=== PATIENT | female | born 1940 | race American Indian/Alaskan Native ===

== ENCOUNTER 2018-09-14 09:09 | Emergency (ER) | payer MEDICARE, MEDICAID ==
[~2018-09-14] VITALS: Ht 157.5 cm; Wt 78.4 kg
[~2018-09-14 09:09] MED LIST: AMLO10TA13 PO; CLON0.3T PO; FURO40TA4 PO; GABA-530 PO; HYDR-3972 PO; LANTUS SQ; MONT10TA24 PO; SERT50TA10 PO; VALS80TA32 PO
[2018-09-14 10:15] LABS: BASOPHILS % (AUTO) 0.5 % (0-1); EOSINOPHILS # (AUTO) 0.2 X10'3 (0-0.9); HEMATOCRIT 22.7 % (35.0-45.0); HEMOGLOBIN 7.6 g/dl (12.0-16.0); LYMPHOCYTES # (AUTO) 0.7 X10'3 (1.1-4.8); LYMPHOCYTES % (AUTO) 10.5 % (21-51); MEAN CORPUSCULAR HGB CONC 33.4 % (33.0-36.5); MEAN CORPUSCULAR VOLUME 98.6 FL (78-98); MEAN PLATELET VOLUME 7.9 FL (7.4-10.4); MONOCYTES # (AUTO) 0.4 X10'3 (0-0.9); MONOCYTES % (AUTO) 5.1 % (2-12); NEUTROPHILS # (AUTO) 5.7 X10'3 (1.8-7.7); NEUTROPHILS % (AUTO) 80.9 % (42-75); PLATELET COUNT 274 X10'3 (140-440); RED CELL DISTRIBUTION WIDTH 17.9 % (11.5-14.5)
[2018-09-14 10:51] LABS: ALANINE AMINOTRANSFERASE 24 U/L (12-78); ALBUMIN 3.2 G/DL (3.4-5.0); ALBUMIN/GLOBULIN RATIO 0.8 (1.1-1.5); ALKALINE PHOSPHATASE 173 IU/L (46-116); ANION GAP 5 (8-16); ASPARTATE AMINO TRANSFERASE 19 U/L (10-37); BILIRUBIN,TOTAL 0.4 MG/DL (0.1-1.0); BLOOD UREA NITROGEN 9 MG/DL (7-18); BUN/CREATININE RATIO 5.7 (6.6-38.0); CALCIUM 8.3 MG/DL (8.5-10.1); CHLORIDE 99 MMOL/L (99-107); CREATININE 1.57 MG/DL (0.40-0.90); GLUCOSE 76 MG/DL (70-104); POTASSIUM 3.2 MMOL/L (3.5-5.1); PROTHROMBIN TIME 9.9 SECONDS (9.0-12.0); SODIUM 139 MMOL/L (135-145); TOTAL CARBON DIOXIDE 35.2 MMOL/L (24-32); TOTAL PROTEIN 7.2 G/DL (6.4-8.2); eGFR 32 ML/MIN
--- NOTE | 2018-09-14 11:28 | NUR ---
[employer] contacted for PT ride.
[2018-09-14 11:58] VITALS: BP 127/60
--- NOTE | 2018-09-14 12:14 | NUR ---
PT BIB EMS FROM DIALYSIS FOR C/O LOW H/H. PT IS ASYMPTOMATIC
--- NOTE | 2018-09-14 12:22 | NUR ---
ERIKA [phone]
== END 2018-09-14 13:47 | disposition home or self-care (01) ==
LOC: ER 09:10
DX: D64.9 Anemia, unspecified (principal); E87.6 Hypokalemia; I12.0 Hypertensive chronic kidney disease with stage 5 chronic kidney disease or end stage renal disease; E11.22 Type 2 diabetes mellitus with diabetic chronic kidney disease; N18.6 End stage renal disease; J44.9 Chronic obstructive pulmonary disease, unspecified; K21.9 Gastro-esophageal reflux disease without esophagitis; M19.90 Unspecified osteoarthritis, unspecified site; Z90.49 Acquired absence of other specified parts of digestive tract; Z98.890 Other specified postprocedural states; Z79.4 Long term (current) use of insulin; Z79.899 Other long term (current) drug therapy; Z99.2 Dependence on renal dialysis
CPT/HCPCS: 36415; 71045; 80053; 85025; 85610; 86885; 86900; 86901; 93005; 99284

== ENCOUNTER 2018-09-26 06:59 | Day surgery (SDC) | payer MEDICARE, MEDICAID ==
[~2018-09-26] VITALS: Ht 152.4 cm; Wt 76.7 kg
[2018-09-26] VITALS (9 sets, daily range): BP systolic 134–146; BP diastolic 56–76
[2018-09-26] MEDS ORDERED: normal saline 1000ml 1,000 ML IV SCH (07:20)
[2018-09-26] MEDS ORDERED: ASPI-1053 PO (07:57)
[2018-09-26 08:24] LABS: BASOPHILS % (AUTO) 0.5 % (0-1); EOSINOPHILS # (AUTO) 0.3 X10'3 (0-0.9); EOSINOPHILS % (AUTO) 4.7 % (0-6); HEMATOCRIT 28.5 % (35.0-45.0); HEMOGLOBIN 9.3 g/dl (12.0-16.0); LYMPHOCYTES # (AUTO) 1.2 X10'3 (1.1-4.8); LYMPHOCYTES % (AUTO) 16.8 % (21-51); MEAN CORPUSCULAR HEMOGLOBIN 31.7 PG (27.0-31.0); MEAN CORPUSCULAR HGB CONC 32.7 g/dL (33.0-36.5); MEAN PLATELET VOLUME 7.8 FL (7.4-10.4); MONOCYTES # (AUTO) 0.6 X10'3 (0-0.9); MONOCYTES % (AUTO) 8.3 % (2-12); NEUTROPHILS # (AUTO) 4.8 X10'3 (1.8-7.7); NEUTROPHILS % (AUTO) 69.7 % (42-75); PLATELET COUNT 170 X10'3 (140-440); RED BLOOD COUNT 2.94 X10'6 (4.20-5.60); RED CELL DISTRIBUTION WIDTH 17.1 % (11.5-14.5); WHITE BLOOD COUNT 6.9 X10'3 (4.5-11.0)
[2018-09-26 08:26] LABS: ALBUMIN 3.1 G/DL (3.4-5.0); ANION GAP 14 (8-16); BLOOD UREA NITROGEN 33 MG/DL (7-18); BUN/CREATININE RATIO 6.7 (6.6-38.0); CALCIUM 7.9 MG/DL (8.5-10.1); CHLORIDE 99 MMOL/L (99-107); CREATININE 4.92 MG/DL (0.40-0.90); GLUCOSE 76 MG/DL (70-104); POTASSIUM 4.1 MMOL/L (3.5-5.1); SODIUM 141 MMOL/L (135-145); TOTAL CARBON DIOXIDE 28.5 MMOL/L (24-32); eGFR 9 ML/MIN
[2018-09-26 08:27] LABS: PROTHROMBIN TIME 10.5 SECONDS (9.0-12.0)
[2018-09-26] MEDS ORDERED: LIDOcaine 1%/PF 5ML 10 MG/ML VIAL ONE ×2 (08:29→08:36)
[2018-09-26] MEDS ORDERED: iohexol 300mg/ml 100ml inj. ONE (08:29)
[2018-09-26] MEDS ORDERED: midazolam 2 mg/2 ml injection ONE (08:40)
[2018-09-26] MEDS ORDERED: heparin 1,000 UNITS/NS 500ml 500 ML ONE (08:41)
[2018-09-26] MEDS ORDERED: fentaNYL/PF 50MCG/1 ML 2ML syringe ONE ×2 (08:41→09:53)
--- NOTE | 2018-09-26 10:30 | NUR ---
called pt telephone directory distributor driver, waiting for response.
[2018-09-26] MEDS ORDERED: HYDROcodone/acetaminophen 10/325mg tab PO ONE (10:50)
--- NOTE | 2018-09-26 11:30 | NUR ---
2nd call to pt jinrikisha driver, waiting for response.
--- NOTE | 2018-09-26 12:45 | NUR ---
Rubber Gasket Inspector Trimmer called and said he would be here in 30 min.
== END 2018-09-26 13:45 | disposition home or self-care (01) ==
LOC: SSTAY O 06:59
PROVIDERS: ATTEND Radiology Diagnostic Radiology
DX: T82.858A Stenosis of other vascular prosthetic devices, implants and grafts, initial encounter (principal); Y83.8 Other surgical procedures as the cause of abnormal reaction of the patient, or of later complication, without mention of misadventure at the time of the procedure; Y92.89 Other specified places as the place of occurrence of the external cause; I87.1 Compression of vein; E11.22 Type 2 diabetes mellitus with diabetic chronic kidney disease; I12.0 Hypertensive chronic kidney disease with stage 5 chronic kidney disease or end stage renal disease; N18.6 End stage renal disease; J44.9 Chronic obstructive pulmonary disease, unspecified; K21.9 Gastro-esophageal reflux disease without esophagitis; M19.90 Unspecified osteoarthritis, unspecified site; F41.8 Other specified anxiety disorders; F32.9 Major depressive disorder, single episode, unspecified; E55.9 Vitamin D deficiency, unspecified; Z95.1 Presence of aortocoronary bypass graft; Z87.891 Personal history of nicotine dependence; Z99.2 Dependence on renal dialysis; Z86.2 Personal history of diseases of the blood and blood-forming organs and certain disorders involving the immune mechanism; Z87.19 Personal history of other diseases of the digestive system; Z90.49 Acquired absence of other specified parts of digestive tract; Z79.891 Long term (current) use of opiate analgesic; Z79.4 Long term (current) use of insulin; Z79.82 Long term (current) use of aspirin; Z79.899 Other long term (current) drug therapy; Z98.890 Other specified postprocedural states
CPT/HCPCS: 36415; 36902; 36907; 80048; 82948; 85025; 85610; 99152; 99153; J1644; J2001; J2250; J3010; Q9967; C1725; C1769; C1894

== ENCOUNTER 2019-06-15 15:28 | Inpatient (IN) | payer MEDICARE, MEDICAID ==
[~2019-06-15] VITALS: Ht 152.4 cm; Wt 77.1 kg
[~2019-06-15 15:28] MED LIST changes: +ASPI-1053 PO
[2019-06-15] MEDS ORDERED: acetaminophen 325mg tablet PO PRN (16:30)
[2019-06-15] MEDS ORDERED: ondansetron/PF 4mg/2ml inj IV PRN (16:30)
[2019-06-15 16:45] LABS: BASOPHILS # (AUTO) 0.1 X10'3 (0-0.2); BASOPHILS % (AUTO) 0.5 % (0-1); EOSINOPHILS # (AUTO) 0.1 X10'3 (0-0.9); EOSINOPHILS % (AUTO) 0.6 % (0-6); HEMATOCRIT 31.7 % (35.0-45.0); HEMOGLOBIN 10.8 g/dl (12.0-16.0); LYMPHOCYTES # (AUTO) 0.8 X10'3 (1.1-4.8); LYMPHOCYTES % (AUTO) 6.8 % (21-51); MEAN CORPUSCULAR HEMOGLOBIN 32.5 PG (27.0-31.0); MEAN CORPUSCULAR HGB CONC 34.1 g/dL (33.0-36.5); MEAN CORPUSCULAR VOLUME 95.3 FL (78-98); MEAN PLATELET VOLUME 8.9 FL (7.4-10.4); MONOCYTES # (AUTO) 0.5 X10'3 (0-0.9); MONOCYTES % (AUTO) 4.8 % (2-12); NEUTROPHILS # (AUTO) 9.7 X10'3 (1.8-7.7); NEUTROPHILS % (AUTO) 87.3 % (42-75); PLATELET COUNT 153 X10'3 (140-440); RED BLOOD COUNT 3.33 X10'6 (4.20-5.60); RED CELL DISTRIBUTION WIDTH 15.1 % (11.5-14.5); WHITE BLOOD COUNT 11.1 X10'3 (4.5-11.0)
[2019-06-15 16:52] LABS: PARTIAL THROMBOPLASTIN TIME 28 SECONDS (22-32)
[2019-06-15 17:01] LABS: ALANINE AMINOTRANSFERASE 13 U/L (12-78); ALBUMIN 2.9 G/DL (3.4-5.0); ALBUMIN/GLOBULIN RATIO 0.7 (1.1-1.5); ALKALINE PHOSPHATASE 190 IU/L (46-116); ANION GAP 11 (8-16); ASPARTATE AMINO TRANSFERASE 20 U/L (10-37); BILIRUBIN,TOTAL 0.4 MG/DL (0.1-1.0); BLOOD UREA NITROGEN 51 MG/DL (7-18); BUN/CREATININE RATIO 7.6 (6.6-38.0); CALCIUM 7.9 MG/DL (8.5-10.1); CHLORIDE 96 MMOL/L (99-107); CREATININE 6.72 MG/DL (0.40-0.90); GLUCOSE 285 MG/DL (70-104); POTASSIUM 3.9 MMOL/L (3.5-5.1); SODIUM 137 MMOL/L (135-145); TOTAL CARBON DIOXIDE 30.3 MMOL/L (24-32); eGFR 6 ML/MIN
[2019-06-15] MEDS ORDERED: MESSAGE TO PHARMACY PO ONE (17:10)
[2019-06-15] MEDS ORDERED: glucagon, human recombinant 1mg kit SUBCUT PRN (17:10)
[2019-06-15] MEDS ORDERED: dextrose ORAL solution 15 GM/59 ML bottle PO PRN ×2 (17:10)
[2019-06-15] MEDS ORDERED: dextrose 50%-water 50ml dispensing syringe IV PRN ×2 (17:10)
--- NOTE | 2019-06-15 17:37 | NUR ---
GLUCOSE [id number]
--- NOTE | 2019-06-15 18:06 | NUR ---
relieving RN for lunch, pt is sleeping, resp even and unlabored, easily arouseable
--- NOTE | 2019-06-15 19:23 | NUR ---
report called from ER, JORGE Zapata and pt brought to unit. VSS, accucheck done, oriented to unit, BLL, call light in reach, in no apparent distress. will continue to monitor
[2019-06-15 19:25] VITALS: BP 158/66
[2019-06-15] MEDS: insulin Lispro (HumaLOG) vial - multi-dose SQ SCH (20:28)
[2019-06-15] MEDS ORDERED: TRAZ-251 PO (20:57)
[2019-06-15] MEDS ORDERED: LEVO50TA8 PO (20:57)
[2019-06-15] MEDS ORDERED: LOSA50TA64 PO (20:57)
[2019-06-15] MEDS ORDERED: FOLI-83 PO (20:57)
[2019-06-15] MEDS ORDERED: CLON0.1T2 PO (20:57)
[2019-06-15] MEDS ORDERED: VITA-268 PO (20:57)
[2019-06-15] MEDS: insulin glargine (Lantus) pen - multi-dose SQ SCH (22:09)
[2019-06-15] MEDS ORDERED: traZODone 50mg tablet PO ONE (22:50)
[2019-06-15] MEDS: HYDROcodone/acetaminophen 10/325mg tab PO PRN (23:00)
[2019-06-16] VITALS: BP 137/59
[2019-06-16] MEDS: HYDROcodone/acetaminophen 10/325mg tab PO PRN ×2 (05:05→20:58)
[2019-06-16 05:24] LABS: BASOPHILS % (AUTO) 0.6 % (0-1); EOSINOPHILS # (AUTO) 0.3 X10'3 (0-0.9); EOSINOPHILS % (AUTO) 4.4 % (0-6); HEMATOCRIT 26.5 % (35.0-45.0); HEMOGLOBIN 9.1 g/dl (12.0-16.0); LYMPHOCYTES # (AUTO) 1.5 X10'3 (1.1-4.8); LYMPHOCYTES % (AUTO) 20.7 % (21-51); MEAN CORPUSCULAR HEMOGLOBIN 33.2 PG (27.0-31.0); MEAN CORPUSCULAR HGB CONC 34.4 g/dL (33.0-36.5); MEAN CORPUSCULAR VOLUME 96.5 FL (78-98); MEAN PLATELET VOLUME 8.8 FL (7.4-10.4); MONOCYTES # (AUTO) 0.4 X10'3 (0-0.9); MONOCYTES % (AUTO) 6.2 % (2-12); NEUTROPHILS # (AUTO) 4.8 X10'3 (1.8-7.7); NEUTROPHILS % (AUTO) 68.1 % (42-75); PLATELET COUNT 137 X10'3 (140-440); RED BLOOD COUNT 2.75 X10'6 (4.20-5.60); RED CELL DISTRIBUTION WIDTH 15.1 % (11.5-14.5); WHITE BLOOD COUNT 7.1 X10'3 (4.5-11.0)
[2019-06-16 05:41] LABS: ALANINE AMINOTRANSFERASE 8 U/L (12-78); ALBUMIN 2.7 G/DL (3.4-5.0); ALBUMIN/GLOBULIN RATIO 0.8 (1.1-1.5); ALKALINE PHOSPHATASE 184 IU/L (46-116); ANION GAP 10 (8-16); ASPARTATE AMINO TRANSFERASE 12 U/L (10-37); BILIRUBIN,TOTAL 0.4 MG/DL (0.1-1.0); BLOOD UREA NITROGEN 56 MG/DL (7-18); BUN/CREATININE RATIO 7.7 (6.6-38.0); CALCIUM 7.3 MG/DL (8.5-10.1); CHLORIDE 98 MMOL/L (99-107); CREATININE 7.23 MG/DL (0.40-0.90); GLUCOSE 172 MG/DL (70-104); MAGNESIUM 2.5 MG/DL (1.5-2.4); PHOSPHORUS 4.1 MG/DL (2.3-4.5); POTASSIUM 3.9 MMOL/L (3.5-5.1); SODIUM 140 MMOL/L (135-145); TOTAL CARBON DIOXIDE 31.8 MMOL/L (24-32); TOTAL PROTEIN 6.3 G/DL (6.4-8.2); eGFR 5 ML/MIN
--- NOTE | 2019-06-16 06:34 | NUR ---
report given to JORGE Pradhan
--- NOTE | 2019-06-16 06:49 | NUR ---
Patient in room [facility]. I have received report from JAZIEL PATEL and had the opportunity to ask questions and assume patient care.
[2019-06-16 07:00] VITALS: BP 123/51
[2019-06-16] MEDS: insulin Lispro (HumaLOG) vial - multi-dose SQ SCH ×2 (09:47→14:29)
[2019-06-16] MEDS: furosemide 40mg tablet PO SCH (09:50)
[2019-06-16] MEDS: levoTHYROXINE 25mcg tablet PO SCH (09:51)
[2019-06-16] MEDS: montelukast 10mg tablet PO SCH (09:51)
[2019-06-16] MEDS: sertraline 50mg tablet PO SCH (09:51)
[2019-06-16] MEDS: losartan 50mg tablet PO SCH (09:51)
--- NOTE | 2019-06-16 12:10 | NUR ---
I AM BEING FLOATED TO [facility]. I WILL REPORT TO TEJ Shay RN.
--- NOTE | 2019-06-16 12:55 | NUR ---
Report taken from JORGE Pradhan
--- NOTE | 2019-06-16 15:31 | NUR ---
DM Consult: A1C <7 and not appropriate for DM ed at this time. Addendum: 06/16/19 at [address] Amended: Links added.
--- NOTE | 2019-06-16 18:13 | NUR ---
Problems reprioritized. Patient report given, questions answered & plan of care reviewed with JORGE Atwood.
[2019-06-16 19:00] VITALS: BP 141/69
[2019-06-16] MEDS ORDERED: amLODIPine 5mg tablet PO SCH (20:00)
[2019-06-16] MEDS ORDERED: traZODone 50mg tablet PO SCH (20:00)
[2019-06-16] MEDS: traZODone 50mg tablet PO SCH (20:58)
[2019-06-16] MEDS: gabapentin 100mg capsule PO SCH (20:58)
[2019-06-16] MEDS: insulin glargine (Lantus) pen - multi-dose SQ SCH (23:16)
[2019-06-17] VITALS (8 sets, daily range): BP systolic 137–154; BP diastolic 55–62
[2019-06-17 06:25] LABS: BASOPHILS # (AUTO) 0.1 X10'3 (0-0.2); BASOPHILS % (AUTO) 0.8 % (0-1); EOSINOPHILS # (AUTO) 0.4 X10'3 (0-0.9); HEMATOCRIT 25.5 % (35.0-45.0); HEMOGLOBIN 8.9 g/dl (12.0-16.0); LYMPHOCYTES # (AUTO) 1.9 X10'3 (1.1-4.8); MEAN CORPUSCULAR HEMOGLOBIN 33.5 PG (27.0-31.0); MEAN CORPUSCULAR VOLUME 95.6 FL (78-98); MEAN PLATELET VOLUME 8.8 FL (7.4-10.4); MONOCYTES # (AUTO) 0.5 X10'3 (0-0.9); MONOCYTES % (AUTO) 6.1 % (2-12); NEUTROPHILS # (AUTO) 4.6 X10'3 (1.8-7.7); NEUTROPHILS % (AUTO) 62.1 % (42-75); PLATELET COUNT 144 X10'3 (140-440); RED BLOOD COUNT 2.67 X10'6 (4.20-5.60); RED CELL DISTRIBUTION WIDTH 15.2 % (11.5-14.5); WHITE BLOOD COUNT 7.5 X10'3 (4.5-11.0)
[2019-06-17 06:26] LABS: ALANINE AMINOTRANSFERASE 8 U/L (12-78); ALBUMIN 2.7 G/DL (3.4-5.0); ALBUMIN/GLOBULIN RATIO 0.8 (1.1-1.5); ALKALINE PHOSPHATASE 168 IU/L (46-116); ANION GAP 9 (8-16); ASPARTATE AMINO TRANSFERASE 26 U/L (10-37); BILIRUBIN,TOTAL 0.4 MG/DL (0.1-1.0); BLOOD UREA NITROGEN 64 MG/DL (7-18); BUN/CREATININE RATIO 7.8 (6.6-38.0); CALCIUM 6.7 MG/DL (8.5-10.1); CHLORIDE 96 MMOL/L (99-107); CREATININE 8.17 MG/DL (0.40-0.90); GLUCOSE 102 MG/DL (70-104); MAGNESIUM 2.4 MG/DL (1.5-2.4); PHOSPHORUS 4.9 MG/DL (2.3-4.5); POTASSIUM 4.7 MMOL/L (3.5-5.1); SODIUM 137 MMOL/L (135-145); TOTAL PROTEIN 6.3 G/DL (6.4-8.2); eGFR 5 ML/MIN
--- NOTE | 2019-06-17 07:06 | NUR ---
Problems reprioritized. Patient report given, questions answered & plan of care reviewed with Raissa. Addendum: 06/17/19 at 0707 by Jairo Gutiérrez RN Amended: Links added.
[2019-06-17] MEDS: losartan 50mg tablet PO SCH ×2 (07:29→07:57)
[2019-06-17] MEDS: montelukast 10mg tablet PO SCH (07:56)
[2019-06-17] MEDS: furosemide 40mg tablet PO SCH (07:57)
[2019-06-17] MEDS: sertraline 50mg tablet PO SCH (07:57)
[2019-06-17] MEDS: levoTHYROXINE 25mcg tablet PO SCH (07:57)
[2019-06-17] MEDS: multivitamins, therapeutics tablet PO SCH (07:57)
[2019-06-17] MEDS ORDERED: heparin 1,000unit/ml 10ml vial 10 ML IV ONE (09:08)
[2019-06-17] MEDS ORDERED: albumin (human) 25% 100ml IV 100 ML IV PRN (09:10)
[2019-06-17] MEDS ORDERED: epoetin 20,000 units/ml inj IV ONE (09:10)
[2019-06-17] MEDS ORDERED: heparin 1,000 units/ml 10ml inj IV ONE (09:10)
[2019-06-17] MEDS ORDERED: heparin 1,000 units/ml 10ml inj HE ONE ×2 (09:15)
[2019-06-17] MEDS ORDERED: LIDOcaine 1%/PF 5ML 10 MG/ML VIAL SQ ONE (10:35)
[2019-06-17] MEDS ORDERED: normal saline 1000ml 1,000 ML IV SCH (10:35)
[2019-06-17] MEDS ORDERED: midazolam 2 mg/2 ml injection IV PRN (10:35)
[2019-06-17] MEDS ORDERED: heparin 1,000 units/ml 10ml inj ICATH ONE (10:35)
[2019-06-17] MEDS ORDERED: fentaNYL/PF 50MCG/1 ML 2ML syringe IV PRN (10:35)
[2019-06-17] MEDS ORDERED: heparin 1,000unit/ml 10ml vial 10 ML ONE (10:49)
[2019-06-17] MEDS ORDERED: midazolam 2 mg/2 ml injection ONE (10:49)
[2019-06-17] MEDS ORDERED: fentaNYL/PF 50MCG/1 ML 2ML syringe ONE ×2 (10:49→11:32)
[2019-06-17] MEDS ORDERED: LIDOcaine 1%/PF 5ML 10 MG/ML VIAL ONE (10:50)
--- NOTE | 2019-06-17 12:00 | NUR ---
Patient in room [facility]. I have received report from Raissa PATEL and had the opportunity to ask questions and assume patient care.
--- NOTE | 2019-06-17 12:56 | NUR ---
Dr Drew aware patient back from gettting TDC catheter. Dr Drew will contact net wpf developer and notifiy patient is back. I already left a message on vm for digital composer
[2019-06-17] MEDS: amLODIPine 5mg tablet PO SCH (13:09)
--- NOTE | 2019-06-17 16:10 | NUR ---
reviewed nursing informatics analyst charting
--- NOTE | 2019-06-17 17:50 | NUR ---
Problems reprioritized. Patient report given, questions answered & plan of care reviewed with tone PATEL.
--- NOTE | 2019-06-17 18:47 | NUR ---
Problems reprioritized. Patient report given, questions answered & plan of care reviewed with Rai PATEL.
[2019-06-17] MEDS: insulin glargine (Lantus) pen - multi-dose SQ SCH (21:00)
[2019-06-17] MEDS: gabapentin 100mg capsule PO SCH (21:13)
[2019-06-17] MEDS: traZODone 50mg tablet PO SCH (21:14)
[2019-06-17] MEDS: HYDROcodone/acetaminophen 10/325mg tab PO PRN (21:25)
[2019-06-18] VITALS: BP 127/60
--- NOTE | 2019-06-18 06:10 | NUR ---
Patient in room [facility]. I have received report from JORGE Atwood and had the opportunity to ask questions and assume patient care.
--- NOTE | 2019-06-18 06:50 | NUR ---
Problems reprioritized. Patient report given, questions answered & plan of care reviewed with EVERETTE. Addendum: 06/18/19 at 0650 by Jairo Gutiérrez RN Amended: Links added.
[2019-06-18 07:00] VITALS: BP 158/52
[2019-06-18] MEDS: losartan 50mg tablet PO SCH ×2 (07:21→07:27)
[2019-06-18] MEDS: levoTHYROXINE 25mcg tablet PO SCH (07:27)
[2019-06-18] MEDS: sertraline 50mg tablet PO SCH (07:28)
[2019-06-18] MEDS: multivitamins, therapeutics tablet PO SCH (07:28)
[2019-06-18] MEDS: montelukast 10mg tablet PO SCH (07:28)
[2019-06-18] MEDS: furosemide 40mg tablet PO SCH (07:28)
[2019-06-18] MEDS: amLODIPine 5mg tablet PO SCH (07:28)
[2019-06-18] MEDS: HYDROcodone/acetaminophen 10/325mg tab PO PRN (07:31)
--- NOTE | 2019-06-18 11:02 | NUR ---
Patient discharged home and taken from unit via wheelchair with x1 staff. patient alert, oriented and in no apparent distress at time of discharge. PIV removed with cannula intact and bleeding well controlled. Tele monitor removed and chambers notified. Patient took all belongings with her including the discharge instructions. Patient stated an understanding of instructions and was given time for questions and answers. No new prescriptions were written for this patient.
== END 2019-06-18 10:59 | disposition home or self-care (01) | DRG 314 ==
LOC: ER 15:28 → ED HOLD 16:42 → SUR 3N 19:24
PROVIDERS: ATTEND Internal Medicine Critical Care Medicine
PROC: 0JH63XZ Insertion of Tunneled Vascular Access Device into Chest Subcutaneous Tissue and Fascia, Percutaneous Approach (ICD-10-PCS; principal; 2019-06-17)
PROC: 02HV33Z Insertion of Infusion Device into Superior Vena Cava, Percutaneous Approach (ICD-10-PCS; 2019-06-17)
PROC: B548ZZA Ultrasonography of Superior Vena Cava, Guidance (ICD-10-PCS; 2019-06-17)
PROC: B5181ZA Fluoroscopy of Superior Vena Cava using Low Osmolar Contrast, Guidance (ICD-10-PCS; 2019-06-17)
PROC: 5A1D70Z Performance of Urinary Filtration, Intermittent, Less than 6 Hours Per Day (ICD-10-PCS; 2019-06-17)
DX: T82.510A Breakdown (mechanical) of surgically created arteriovenous fistula, initial encounter (principal); N18.6 End stage renal disease; I12.0 Hypertensive chronic kidney disease with stage 5 chronic kidney disease or end stage renal disease; T82.838A Hemorrhage due to vascular prosthetic devices, implants and grafts, initial encounter; E11.22 Type 2 diabetes mellitus with diabetic chronic kidney disease; E11.65 Type 2 diabetes mellitus with hyperglycemia; I25.10 Atherosclerotic heart disease of native coronary artery without angina pectoris; J43.9 Emphysema, unspecified; K21.9 Gastro-esophageal reflux disease without esophagitis; F32.9 Major depressive disorder, single episode, unspecified; Z60.2 Problems related to living alone; F41.9 Anxiety disorder, unspecified; H26.9 Unspecified cataract; M19.90 Unspecified osteoarthritis, unspecified site; Y71.2 Prosthetic and other implants, materials and accessory cardiovascular devices associated with adverse incidents; Z90.81 Acquired absence of spleen; Z95.1 Presence of aortocoronary bypass graft; Z99.2 Dependence on renal dialysis; Z79.4 Long term (current) use of insulin; Z90.49 Acquired absence of other specified parts of digestive tract; Z79.899 Other long term (current) drug therapy
CPT/HCPCS: 36415; 36558; 71045; 76937; 77001; 80053; 82948; 83036; 83735; 84100; 85025; 85610; 85730; 86885; 86900; 86901; 87081; 93005; 99152; 99153; 99285; G0257; G0378; J1644; J1815; J2250; J3010; J7030; Q4081

== ENCOUNTER 2020-06-01 10:55 | Day surgery (SDC) | payer OTHER ==
[~2020-06-01] VITALS: Ht 152.4 cm; Wt 74.1 kg
[2020-06-01] VITALS (7 sets, daily range): BP systolic 131–158; BP diastolic 60–72
[~2020-06-01 10:55] MED LIST changes: +CLON0.1T2 PO; -CLON0.3T PO; +FOLI-83 PO; +LEVO50TA8 PO; +LOSA50TA64 PO; -MONT10TA24 PO; +MONT10TA26 PO; +TRAZ-251 PO; -VALS80TA32 PO; +VITA-268 PO
[2020-06-01] MEDS ORDERED: MAG-154 (11:57)
[2020-06-01] MEDS ORDERED: INSU200I (11:57)
[2020-06-01] MEDS ORDERED: VALS80TA32 PO (11:57)
[2020-06-01] MEDS ORDERED: FOLI0.4T2 PO (11:57)
[2020-06-01] MEDS ORDERED: POLY119P2 PO (11:57)
[2020-06-01] MEDS ORDERED: OMEP20TA5 PO (11:57)
[2020-06-01] MEDS ORDERED: DICL100G15 TOP (11:57)
[2020-06-01] MEDS ORDERED: PHO667C PO (11:57)
[2020-06-01] MEDS ORDERED: HEPA1DIS10 (11:57)
[2020-06-01 12:06] LABS: EOSINOPHILS # (AUTO) 0.2 X10'3 (0-0.9); EOSINOPHILS % (AUTO) 1.7 % (0-6); MONOCYTES # (AUTO) 0.5 X10'3 (0-0.9); MONOCYTES % (AUTO) 5.1 % (2-12); NEUTROPHILS # (AUTO) 7.6 X10'3 (1.8-7.7); RED BLOOD COUNT 3.85 X10'6 (4.20-5.60); WHITE BLOOD COUNT 9.4 X10'3 (4.5-11.0)
[2020-06-01 12:08] LABS: BASOPHILS # (AUTO) 0.1 X10'3 (0-0.2); BASOPHILS % (AUTO) 0.6 % (0-1); HEMATOCRIT 37.6 % (35.0-45.0); HEMOGLOBIN 12.6 g/dl (12.0-16.0); LYMPHOCYTES # (AUTO) 1.1 X10'3 (1.1-4.8); LYMPHOCYTES % (AUTO) 11.9 % (21-51); MEAN CORPUSCULAR HEMOGLOBIN 32.8 PG (27.0-31.0); MEAN CORPUSCULAR HGB CONC 33.6 g/dL (33.0-36.5); MEAN CORPUSCULAR VOLUME 97.6 FL (78-98); MEAN PLATELET VOLUME 7.8 FL (7.4-10.4); NEUTROPHILS % (AUTO) 80.7 % (42-75); PLATELET COUNT 231 X10'3 (140-440); RED CELL DISTRIBUTION WIDTH 15.8 % (11.5-14.5)
[2020-06-01 12:26] LABS: ALBUMIN 2.7 G/DL (3.4-5.0); ANION GAP 5 (8-16); BLOOD UREA NITROGEN 52 MG/DL (7-18); BUN/CREATININE RATIO 11.4 (6.6-38.0); CALCIUM 8.9 MG/DL (8.5-10.1); CHLORIDE 91 MMOL/L (99-107); CREATININE 4.58 MG/DL (0.40-0.90); GLUCOSE 203 MG/DL (70-104); POTASSIUM 5.9 MMOL/L (3.5-5.1); SODIUM 130 MMOL/L (135-145); TOTAL CARBON DIOXIDE 33.9 MMOL/L (24-32); eGFR 9 ML/MIN
[2020-06-01 12:43] LABS: TOTAL CELLS COUNTED 100
[2020-06-01 12:44] LABS: PLATELET ESTIMATE NORMAL; TOXIC VACUOLATION 1+
[2020-06-01 12:46] LABS: LARGE PLATELETS FEW
[2020-06-01] MEDS ORDERED: LIDOcaine 1%/PF 5ML 10 MG/ML VIAL ONE (13:29)
[2020-06-01] MEDS ORDERED: fentaNYL/PF 50MCG/1 ML 2ML syringe ONE (13:51)
[2020-06-01] MEDS ORDERED: heparin 1,000unit/ml 10ml vial 10 ML ONE (14:03)
== END 2020-06-01 17:05 | disposition home or self-care (01) ==
LOC: SSTAY O 10:55
PROVIDERS: ATTEND Radiology Vascular & Interventional Radiology
DX: T82.49XA Other complication of vascular dialysis catheter, initial encounter (principal); N18.6 End stage renal disease; Z98.890 Other specified postprocedural states; Z90.49 Acquired absence of other specified parts of digestive tract; Z79.899 Other long term (current) drug therapy; Y83.8 Other surgical procedures as the cause of abnormal reaction of the patient, or of later complication, without mention of misadventure at the time of the procedure; Y92.89 Other specified places as the place of occurrence of the external cause
CPT/HCPCS: 36415; 36581; 77001; 80048; 85025; 99152; C1750; C1769; J1644; J3010; 85007; A9270

== ENCOUNTER 2020-06-07 21:27 | Emergency (ER) | payer OTHER ==
[~2020-06-07] VITALS: Ht 152.4 cm; Wt 70.8 kg
[~2020-06-07 21:27] MED LIST changes: -AMLO10TA13 PO; -ASPI-1053 PO; -CLON0.1T2 PO; +DICL100G15 TOP; +FOLI0.4T2 PO; -FURO40TA4 PO; +HEPA1DIS10; +INSU200I; -LOSA50TA64 PO; +MAG-154; +OMEP20TA5 PO; +PHO667C PO; +POLY119P2 PO; +VALS80TA32 PO
--- NOTE | 2020-06-07 22:08 | NUR ---
BLEEDING BEGAN AGAIN, NOSE CLAMPED PLACED
[2020-06-07] MEDS ORDERED: oxymetazoline 15 ML nasal spray NS ONE (22:10)
--- NOTE | 2020-06-07 23:25 | NUR ---
REPORT GIVEN TO ERASMO PATEL AT [facility]
[2020-06-08 01:06] VITALS: BP 159/63
== END 2020-06-08 01:08 | disposition short-term general hospital (02) ==
LOC: ER 21:27
DX: R04.0 Epistaxis (principal); N18.6 End stage renal disease; I13.2 Hypertensive heart and chronic kidney disease with heart failure and with stage 5 chronic kidney disease, or end stage renal disease; E11.22 Type 2 diabetes mellitus with diabetic chronic kidney disease; Z90.49 Acquired absence of other specified parts of digestive tract; Z98.61 Coronary angioplasty status; Z90.710 Acquired absence of both cervix and uterus; Z98.890 Other specified postprocedural states; Z79.899 Other long term (current) drug therapy; Z99.2 Dependence on renal dialysis
CPT/HCPCS: 30905; 99284